=== PATIENT | female | born 1985 | race African-American/Black ===

== ENCOUNTER 2018-02-02 13:19 | Emergency (ER) | payer SELFPAY ==
[~2018-02-02] VITALS: Ht 165.1 cm; Wt 73.0 kg
[2018-02-02] MEDS ORDERED: HYDROCODONE/ACETAMINOPHEN 5/325MG TABLET PO ONE (16:00)
[2018-02-02] MEDS ORDERED: IBUPROFEN 800MG TABLET PO ONE (16:00)
[2018-02-02] MEDS ORDERED: AMOXICILLIN/POTASSIUM CLAVULANATE 875/125MG TAB PO ONE (16:00)
[2018-02-02] MEDS ORDERED: AMOXICILLIN/POTASSIUM CLAVULANATE 875/125MG TAB PO NR (16:45)
[2018-02-02 17:16] VITALS: BP 125/68
== END 2018-02-02 17:16 | disposition home or self-care (01) ==
LOC: ER 13:19
DX: K04.7 Periapical abscess without sinus (principal)
CPT/HCPCS: 99284

== ENCOUNTER 2019-09-11 06:49 | Emergency (ER) | payer SELFPAY ==
[~2019-09-11] VITALS: Ht 167.6 cm; Wt 66.0 kg
[2019-09-11] MEDS ORDERED: ACETAMINOPHEN 325MG TABLET PO PRN (07:30)
[2019-09-11 08:47] LABS: EOSINOPHILS % 0.7 % (0.0-5.0); HEMATOCRIT. 41.9 % (36.0-48.0); LYMPHOCYTES % 32.4 % (20.0-50.0); MEAN CORPUSCULAR HEMOGLOBIN 31.3 pg (28.0-32.0); MEAN CORPUSCULAR VOLUME 93.5 fL (81.0-99.0); MEAN PLATELET VOLUME 8.5 fl (7.4-10.4); NEUTROPHILS % 60.9 % (40.0-76.0); PLATELET 266 x1000/uL (130-400); RED BLOOD CELL COUNT 4.48 mill/uL (4.2-5.4); RED CELL DISTRIBUTION WIDTH 13.1 % (11.6-14.6)
[2019-09-11 08:54] LABS: CHLORIDE 107 mEq/L (98-107)
[2019-09-11 09:06] LABS: B-HCG QUANTITATIVE < 1 mIU/mL (<3)
[2019-09-11 10:18] LABS: CLARITY URINE CLEAR (CLEAR); COLOR URINE YELLOW (YELLOW); KETONES URINE NEGATIVE (NEGATIVE); LEUKOCYTE ESTERASE URINE NEGATIVE (NEGATIVE); NITRITE URINE NEGATIVE (NEGATIVE); OCCULT BLOOD URINE NEGATIVE (NEGATIVE); PROTEIN URINE NEGATIVE (NEGATIVE); SPECIFIC GRAVITY URINE 1.019 (1.005-1.030)
[2019-09-11 10:41] VITALS: BP 135/60
== END 2019-09-11 10:46 | disposition home or self-care (01) ==
LOC: ER 06:49
DX: R10.32 Left lower quadrant pain (principal); N93.9 Abnormal uterine and vaginal bleeding, unspecified; Z97.5 Presence of (intrauterine) contraceptive device
CPT/HCPCS: 36415; 76830; 76856; 80053; 81003; 81025; 84702; 85025; 99284

== ENCOUNTER 2021-02-12 16:45 | Emergency (ER) | payer MEDICAID ==
[~2021-02-12] VITALS: Ht 167.6 cm; Wt 68.0 kg
[2021-02-12 16:58] VITALS: BP 118/61
== END 2021-02-12 17:59 | disposition home or self-care (01) ==
LOC: ER 16:45
DX: S90.32XA Contusion of left foot, initial encounter (principal); W22.8XXA Striking against or struck by other objects, initial encounter; Y93.89 Activity, other specified; Y92.018 Other place in single-family (private) house as the place of occurrence of the external cause
CPT/HCPCS: 73630; 99283